=== PATIENT | female | born 1995 ===

== ENCOUNTER 2016-11-08 07:14 | Day surgery (SDC) | payer MEDICARE, MEDICAID ==
[~2016-11-08 07:14] MED LIST: Cefuroxime 10 MG/ML SYRINGE EYELF SCH; Lidocaine 1% PF 2 ML SDV INJECT SCH; Pilocarpine 4% Ophth Soln 15 ML Bot EYELF SCH
[2016-11-08] MEDS: Polymyxin B/Trimethoprim 10 ML Bottle EYELF SCH ×3 (08:49→10:49)
[2016-11-08] MEDS: Brimonidine 0.2% Ophth Soln 5 ML Bottle EYELF SCH ×3 (08:54→10:49)
--- NOTE | 2016-11-08 08:55 | PCM.PREANE ---
Preanesthetic Assessment - Anesthesia/Transfusion/Family Hx Anesthesia History: Prior Anesthesia Without Reaction Family History of Anesthesia Reaction: No Transfusion History: No Prior Transfusion(s) - Review of Systems General: No Symptoms Pulmonary: No Symptoms Cardiovascular: No Symptoms Gastrointestinal: No Symptoms Neurological: No Symptoms Other: Reports: None - Physical Assessment NPO Status Date: 11/07/16 NPO Status Time: 18:30 Pulse: 76 O2 Sat by Pulse Oximetry: 97 Respiratory Rate: 16 Blood Pressure: 135/72 Temperature: 36.4 C Height: 1.55 m Weight: 81.647 kg ASA Class: 2 Mental Status: Alert & Oriented x3 Airway Class: Mallampati = 1 Dentition: Reports: Normal Dentition Thyro-Mental Finger Breadths: 3 Mouth Opening Finger Breadths: 2 ROM/Head Extension: Full Lungs: Clear to Auscultation, Normal Respiratory Effort Cardiovascular: Regular Rate, Regular Rhythm - Allergies Allergies/Adverse Reactions: Allergies Allergy/AdvReac Type Severity Reaction Status Date / Time No Known Allergies Allergy Verified 11/07/16 14:00 - Anesthesia Plan Pre-Op Medication Ordered: None - Acknowledgements Anesthesia Type Planned: MAC Pt an Appropriate Candidate for the Planned Anesthesia: Yes Alternatives and Risks of Anesthesia Discussed w Pt/Guardian: Yes Pt/Guardian Understands and Agrees with Anesthesia Plan: Yes PreAnesthesia Questionnaire - SUBSTANCE USE Smoking Status *Q: Never Smoker Tobacco Use Within Last Twelve Months: No Second Hand Smoke Exposure: No Days Per Week of Alcohol Use: 0 Number of Drinks Per Day: 0 Total Drinks Per Week: 0 Recreational Drug Use History: No - HOME MEDS Home Medications: Home Meds . [No Known Home Meds] 11/07/16 [History] - CURRENT (IN HOUSE) MEDS Current Meds: Current Medications Brimonidine Tartrate (Alphagan 0.2% Ophth Soln) 0 ml EYELF ASDIRECTED CHAPINCITO Stop: 11/08/16 18:00 Cefuroxime Sodium (Zinacef) 0 mg EYELF ASDIRECTED CHAPINCITO Stop: 11/08/16 18:00 Lidocaine HCl (Xylocaine-Mpf 1%) 1 ml INJECT ASDIRECTED CHAPINCITO Stop: 11/08/16 18:00 Phenylephrine HCl (Red-Synephrine 2.5% Ophth Soln) 0 ml EYELF ASDIRECTED CHAIPNCITO Stop: 11/08/16 18:00 Pilocarpine HCl (Pilocar 4% Ophth Soln) 0 ml EYELF ASDIRECTED CHAPINCITO Stop: 11/08/16 18:00 Polymyxin/Trimethoprim Sulfate (Polytrim Ophth Soln) 0 ml EYELF ASDIRECTED CHAPINCITO Stop: 11/08/16 18:00 Tetracaine HCl (Tetracaine 0.5% Steri-Unit Dolly) 0 ml EYELF ASDIRECTED CHAPINCITO Stop: 11/08/16 18:00 Tropicamide (Mydriacyl 1% Ophth Soln) 0 ml EYELF ASDIRECTED CHAPINCITO Stop: 11/08/16 18:00
[2016-11-08] MEDS: Phenylephrine 2.5% Ophth Soln 2 ML Bot EYELF SCH ×5 (08:59→10:18)
[2016-11-08] MEDS ORDERED: Lidocaine 1%/Sod Bicarbonate in NS 8.4% 1 ML Syringe SUBCUT ONE (09:00)
[2016-11-08] MEDS ORDERED: Lactated Ringers 1,000 ML IV SCH (09:00)
[2016-11-08] MEDS: Tetracaine HCl/PF 0.5% 4 ML Bottle EYELF SCH ×2 (10:06→10:42)
[2016-11-08] MEDS ORDERED: Propofol 200 MG/20 ML SDV ONE ×2 (10:06→10:40)
--- NOTE | 2016-11-08 10:56 | PCM48HPAN ---
Post Anesthesia Note - EVALUATION WITHIN 48HRS OF ANESTHETIC Vital Signs in Normal Range: Yes Patient Participated in Evaluation: Yes Respiratory Function Stable: Yes Airway Patent: Yes Cardiovascular Function Stable: Yes Hydration Status Stable: Yes Pain Control Satisfactory: Yes Nausea and Vomiting Control Satisfactory: Yes Mental Status Recovered: Yes
[2016-11-08 10:58] VITALS: BP 123/50
== END 2016-11-08 11:15 | disposition home or self-care (01) ==
LOC: JD.SDS 07:14
PROVIDERS: ATTEND Ophthalmology
PROC: 08RK3JZ Replacement of Left Lens with Synthetic Substitute, Percutaneous Approach (ICD-10-PCS; principal; 2016-11-08)
DX: H25.89 Other age-related cataract (principal); G47.30 Sleep apnea, unspecified; G43.909 Migraine, unspecified, not intractable, without status migrainosus; L40.9 Psoriasis, unspecified; Z98.890 Other specified postprocedural states
CPT/HCPCS: 66984; 81025; A9270; C1780; J0697; J7120; J2704

== ENCOUNTER 2016-12-06 09:25 | Day surgery (SDC) | payer MEDICARE, MEDICAID ==
[~2016-12-06 09:25] MED LIST changes: -Cefuroxime 10 MG/ML SYRINGE EYELF SCH; +Cefuroxime 10 MG/ML SYRINGE EYERT SCH; -Pilocarpine 4% Ophth Soln 15 ML Bot EYELF SCH; +Pilocarpine 4% Ophth Soln 15 ML Bot EYERT SCH
[2016-12-06] MEDS: Polymyxin B/Trimethoprim 10 ML Bottle EYERT SCH ×3 (10:21→12:10)
[2016-12-06] MEDS: Brimonidine 0.2% Ophth Soln 5 ML Bottle EYERT SCH ×3 (10:26→12:10)
[2016-12-06] MEDS: Phenylephrine 2.5% Ophth Soln 2 ML Bot EYERT SCH ×5 (10:31→11:44)
--- NOTE | 2016-12-06 11:13 | PCM.PREANE ---
Preanesthetic Assessment - Anesthesia/Transfusion/Family Hx Anesthesia History: Prior Anesthesia Without Reaction Family History of Anesthesia Reaction: No Transfusion History: No Prior Transfusion(s) Intubation History: History of Difficulty Intubation - Review of Systems General: No Symptoms Pulmonary: No Symptoms Cardiovascular: No Symptoms Gastrointestinal: No Symptoms Neurological: No Symptoms Other: Reports: None - Physical Assessment NPO Status Date: 12/05/16 NPO Status Time: 18:00 O2 Sat by Pulse Oximetry: 97 Respiratory Rate: 16 Blood Pressure: 114/90 Vital Signs: Last Vital Signs Temp 36.2 C 12/06/16 10:15 Pulse 79 12/06/16 10:15 Resp 16 12/06/16 10:15 BP 114/90 12/06/16 10:15 Pulse Ox 97 12/06/16 10:15 Height: 1.55 m Weight: 79.379 kg ASA Class: 3 Airway Class: Mallampati = 2 Dentition: Reports: Normal Dentition Thyro-Mental Finger Breadths: 3 Mouth Opening Finger Breadths: 5 ROM/Head Extension: Full Lungs: Clear to Auscultation, Normal Respiratory Effort Cardiovascular: Regular Rate, Regular Rhythm - Allergies Allergies/Adverse Reactions: Allergies Allergy/AdvReac Type Severity Reaction Status Date / Time No Known Allergies Allergy Verified 11/07/16 14:00 - Acknowledgements Anesthesia Type Planned: MAC Pt an Appropriate Candidate for the Planned Anesthesia: Yes Alternatives and Risks of Anesthesia Discussed w Pt/Guardian: Yes Pt/Guardian Understands and Agrees with Anesthesia Plan: Yes PreAnesthesia Questionnaire HEENT History: Reports: Other (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 [No Known Home Meds] 11/07/16 [History] - CURRENT (IN HOUSE) MEDS Current Meds: Current Medications Brimonidine Tartrate (Alphagan 0.2% Ophth Soln) 0 ml EYERT ASDIRECTED CHAPINCITO Stop: 12/06/16 18:00 Last Admin: 12/06/16 10:26 Dose: 1 drop Cefuroxime Sodium (Zinacef) 0 mg EYERT ASDIRECTED CHAPINCITO Stop: 12/06/16 18:00 Lidocaine HCl (Xylocaine-Mpf 1%) 10 ml INJECT ASDIRECTED CHAPINCITO Stop: 12/06/16 18:00 Phenylephrine HCl (Red-Synephrine 2.5% Ophth Soln) 0 ml EYERT ASDIRECTED CHAPINCITO Stop: 12/06/16 18:00 Last Admin: 12/06/16 10:55 Dose: 1 drop Pilocarpine HCl (Pilocar 4% Ophth Soln) 0 ml EYERT ASDIRECTED CHAPINCITO Stop: 12/06/16 18:00 Polymyxin/Trimethoprim Sulfate (Polytrim Ophth Soln) 0 ml EYERT ASDIRECTED CHAPINCITO Stop: 12/06/16 18:00 Last Admin: 12/06/16 11:05 Dose: 1 drop Tetracaine HCl (Tetracaine 0.5% Steri-Unit Dolly) 0 ml EYERT ASDIRECTED CHAPINCITO Stop: 12/06/16 18:00 Tropicamide (Mydriacyl 1% Ophth Soln) 0 ml EYERT ASDIRECTED CHAPINCITO Stop: 12/06/16 18:00 Last Admin: 12/06/16 11:00 Dose: 1 drop
[2016-12-06] MEDS: Tetracaine HCl/PF 0.5% 4 ML Bottle EYERT SCH ×4 (11:40→11:55)
[2016-12-06] MEDS ORDERED: Propofol 200 MG/20 ML SDV ONE ×2 (11:54→12:03)
[2016-12-06] MEDS ORDERED: Lidocaine 1% 4 ML ONE (11:54)
[2016-12-06] MEDS ORDERED: Midazolam 1 MG/ML 2 ML SDV ONE (12:04)
[2016-12-06 13:02] VITALS: BP 90/53
== END 2016-12-06 12:52 | disposition home or self-care (01) ==
LOC: JD.SDS 09:25
PROVIDERS: ATTEND Ophthalmology
DX: H25.89 Other age-related cataract (principal); Q13.1 Absence of iris; H47.033 Optic nerve hypoplasia, bilateral; Z83.518 Family history of other specified eye disorder; Z98.42 Cataract extraction status, left eye; Z96.1 Presence of intraocular lens; Z98.890 Other specified postprocedural states
CPT/HCPCS: 66984; A9270; C1780; J0697; J2250; J2704